=== PATIENT | female | born 1970 | race Caucasian/White ===

== ENCOUNTER → 2017-12-17 10:14 | Outpatient (CLI) | payer MEDICAID, SELFPAY ==
[2017-12-19 10:02] LABS: IgA 215 mg/dL (85-499); Interpretation SEE COMMENTS; Tissue Transglutaminase IgA <1.2 U/mL (<4.0)
== END ==
PROVIDERS: PCP Nurse Practitioner Family; Visit Provider Nurse Practitioner Family
DX: K58.9 Irritable bowel syndrome, unspecified (principal)
CPT/HCPCS: 36415; 82784; 83516

== ENCOUNTER 2018-04-20 00:48 | Outpatient (CLI) | payer MEDICAID, SELFPAY ==
--- NOTE | 2018-04-20 11:00 | DI.MAMMO_ITS ---
SYMPTOM/DIAGNOSIS: BREAST CANCER SCREENING. Z12.31 MAMMOGRAM: Mammograms were interpreted according to the usual protocol including computer analysis with CAD system, tomosynthesis and C view imaging. Comparison with prior examinations. Breast density B. No masses or microcalcifications are seen. There is nothing to suggest malignancy. IMPRESSION: Negative mammogram. Category 1-B. Routine screening is recommended. SA ASSESSMENT OF FINDINGS: Negative. Category 1. Patient will receive a letter notifying them of these results. BI-RADS category B. There are scattered areas of fibroglandular density.
== END 2018-04-20 01:08 ==
PROVIDERS: PCP Nurse Practitioner Family; Visit Provider Nurse Practitioner Family
CPT/HCPCS: 77063; 77067

== ENCOUNTER 2018-12-09 08:25 | Outpatient (CLI) | payer MEDICAID, SELFPAY ==
[2018-12-09 09:11] LABS: Absolute Basophil Count 0.01 k/cumm (0.0-0.2); Absolute Eosinophil Count 0.39 k/cumm (0.0-0.7); Absolute Monocyte Count 0.26 k/cumm (0.11-0.7); Absolute Neutrophil Count 2.28 k/cumm (1.2-6.7); Basophils % 0.3; Eosinophils % 9.9; HCT 42.2 % (36.0-46.0); HGB 14.2 g/dL (12.0-15.5); Lymphocytes % 25.4; Mean Corp. HGB Concentration 33.6 g/dL (32.0-36.0); Mean Corpuscular Hemoglobin 30.4 pg (27.0-33.0); Mean Corpuscular Volume 90.4 fL (80-95); Mean Platelet Volume 9.7 fL (8.0-11.0); Monocytes % 6.6; Neutrophils % 57.8; Platelet Count 396 x1000/uL (130-400); RBC 4.67 m/cumm (4.00-5.20); White Blood Cell Count 3.94 k/cumm (4.4-10.8)
[2018-12-09 10:10] LABS: ALT 34 U/L (12-78); Alkaline Phosphatase 105 U/L (46-116); Amylase 44 U/L (25-115); Anion Gap 9.6 mmol/L (3-11); BUN 14 mg/dL (7-18); Bilirubin, Total 0.2 mg/dL (0.2-1.0); CO2 24.4 mmol/L (21.0-32.0); CREATININE 0.64 mg/dL (0.55-1.02); Calcium 8.9 mg/dL (8.5-10.1); Chloride 105 mmol/L (98-107); FREE T4 0.96 ng/dL (0.76-1.46); Glucose 131 mg/dL (70-100); Lipase 184 U/L (73-393); Potassium 4.5 mmol/L (3.5-5.1); Sodium 139 mmol/L (136-145); TSH 2.52 uIU/mL (0.36-3.74); Total Protein 7.2 g/dL (6.4-8.2)
[2018-12-09 10:32] LABS: Cholesterol 299 mg/dL (50-200); HDL Cholesterol 37 mg/dL (40-60); Triglyceride 593 mg/dL (30-150)
[2018-12-09 10:50] LABS: AST 82 U/L (15-37)
[2018-12-09 10:52] LABS: LDL CHOLESTEROL 144 mg/dL (<100)
[2018-12-09 20:12] LABS: Hemoglobin A1C 6.4 % (4.5-6.2)
[2018-12-10 11:18] LABS: Thyroglobulin Antibody 84 U/mL (<61); Thyroperoxidase Antibody 683 U/mL (<61)
== END 2018-12-09 08:45 ==
PROVIDERS: PCP Nurse Practitioner Family; Visit Provider Nurse Practitioner Family
DX: E03.9 Hypothyroidism, unspecified (principal); G89.29 Other chronic pain; R10.84 Generalized abdominal pain; R19.7 Diarrhea, unspecified; K52.9 Noninfective gastroenteritis and colitis, unspecified; R73.03 Prediabetes
CPT/HCPCS: 80053; 80061; 83690; 83721; 86376; 87329; 87505; 82150; 83036; 83630; 84439; 84443; 85025

== ENCOUNTER 2019-03-29 11:37 | Outpatient (CLI) | payer OTHER, SELFPAY ==
[2019-03-29 13:14] LABS: Hemoglobin A1C 6.5 % (4.5-6.2)
[2019-03-29 13:41] LABS: ALT 37 U/L (14-59); AST 21 U/L (15-37); Albumin 4.3 g/dL (3.4-5.0); Alkaline Phosphatase 80 U/L (46-116); Anion Gap 7.8 mmol/L (3-11); BUN 14 mg/dL (7-18); Bilirubin, Total 0.5 mg/dL (0.2-1.0); CO2 28.2 mmol/L (21.0-32.0); CREATININE 0.74 mg/dL (0.55-1.02); Calcium 9.5 mg/dL (8.5-10.1); Calculated LDL 208 mg/dL; Chloride 104 mmol/L (98-107); Cholesterol 271 mg/dL (50-200); Glucose 90 mg/dL (70-100); HDL Cholesterol 44 mg/dL (40-60); Potassium 4.3 mmol/L (3.5-5.1); Sodium 140 mmol/L (136-145); Total Protein 7.5 g/dL (6.4-8.2); Triglyceride 96 mg/dL (30-150)
== END 2019-03-29 11:57 ==
PROVIDERS: PCP Nurse Practitioner Family; Visit Provider Nurse Practitioner Family
DX: R73.03 Prediabetes (principal)
CPT/HCPCS: 36415; 80053; 80061; 83036

== ENCOUNTER 2020-03-01 02:20 | Outpatient (CLI) | payer MEDICAID, SELFPAY ==
[2020-03-01 08:20] LABS: Hemoglobin A1C 5.8 % (<5.7)
[2020-03-01 09:24] LABS: Anion Gap 8.6 mmol/L (3-11); BUN 15 mg/dL (7-18); CO2 28.4 mmol/L (21.0-32.0); CREATININE 0.82 mg/dL (0.55-1.02); Calcium 9.2 mg/dL (8.5-10.1); Calculated LDL 196 mg/dL (<100); Chloride 105 mmol/L (98-107); Cholesterol 273 mg/dL (<200); Glucose 98 mg/dL (74-106); HDL Cholesterol 52 mg/dL (40-60); Potassium 4.5 mmol/L (3.5-5.1); Sodium 142 mmol/L (136-145); TSH 2.55 uIU/mL (0.36-3.74); Triglyceride 129 mg/dL (<150)
[2020-03-01 09:50] LABS: FREE T4 1.13 ng/dL (0.76-1.46)
== END 2020-03-01 02:40 ==
PROVIDERS: PCP Nurse Practitioner Family; Visit Provider Nurse Practitioner Family
DX: E11.9 Type 2 diabetes mellitus without complications (principal); E03.9 Hypothyroidism, unspecified
CPT/HCPCS: 36415; 80048; 80061; 83036; 84439; 84443

== ENCOUNTER 2020-08-30 09:21 | Outpatient (CLI) | payer MEDICAID, SELFPAY ==
--- NOTE | 2020-08-30 15:00 | DI.RAD_ITS ---
EXAM: XR ABDOMEN FLAT UPRIGHT CLINICAL HISTORY: abdominal pain, constipation, R14.0, K59.00, abd bloating. TECHNIQUE: 2D digital imaging was performed. COMPARISON: No exams were available for comparison FINDINGS: Supine and upright views of the abdomen reveal a nonspecific bowel gas pattern with no evidence of francesco wel obstruction. No free air. No abnormal calcification of the kidneys nor along the course of the ureters. Scoliosis noted in the lumbar spine convex left. Regional bones otherwise appear unremarka ble. IMPRESSION: Nonspecific bowel gas pattern. No bowel obstruction. No free air. DATA REPOSITORY: RADIATION DOSE DELIVERED:
== END 2020-08-30 09:41 ==
PROVIDERS: PCP Nurse Practitioner Family; Visit Provider Physician Assistant
DX: K59.00 Constipation, unspecified (principal); R14.0 Abdominal distension (gaseous)
CPT/HCPCS: 74019

== ENCOUNTER 2020-10-30 02:51 | Outpatient (CLI) | payer MEDICAID, SELFPAY ==
[2020-10-31 13:15] LABS: Lyme Ab w Rflx to Lyme Confirm Negative (Negative)
[2020-11-01 00:59] LABS: Anaplasma phagocytophilum Negative (Negative); B. miyamotoi PCR Negative (Negative); Babesia divergens/MO-1 Negative (Negative); Babesia duncani Negative (Negative); Babesia microti Negative (Negative); Ehrlichia chaffeensis Negative (Negative); Ehrlichia ewingii/canis Negative (Negative); Ehrlichia muris eauclairensis Negative (Negative)
== END 2020-10-30 02:52 | disposition home or self-care (01) ==
LOC: LBO 02:51
PROVIDERS: PCP Nurse Practitioner Family; Visit Provider Nurse Practitioner Family
DX: M43.6 Torticollis (principal)
CPT/HCPCS: 36415; 87798; 86618

== ENCOUNTER 2021-09-24 01:36 | Outpatient (CLI) | payer MEDICAID, SELFPAY ==
[2021-09-24 15:50] LABS: FREE T4 1.01 ng/dL (0.76-1.46); TSH 1.95 uIU/mL (0.36-3.74)
== END 2021-09-24 01:37 | disposition home or self-care (01) ==
LOC: LBO 01:36
PROVIDERS: PCP Nurse Practitioner Family; Visit Provider Nurse Practitioner Family
DX: E03.9 Hypothyroidism, unspecified (principal); E78.5 Hyperlipidemia, unspecified; R73.03 Prediabetes
CPT/HCPCS: 84439; 84443

== ENCOUNTER → 2023-01-27 00:51 | Outpatient (CLI) | payer MEDICAID, SELFPAY ==
--- NOTE | 2023-01-27 08:00 | DI.US_ITS ---
Exam(s) US PELVIS TRANSVAGINAL EXAM: US PELVIS TRANSVAGINAL CLINICAL HISTORY: evaluate ovaries due to hormone changes,menopausal symptoms,n95.1 TECHNIQUE: Transabdominal and transvaginal imaging was performed using standard protocol. COMPARISON: CT ABD PELVIS WITH CONTRAST from 12/02/2017 FINDINGS: UTERUS: Anteverted, deviated toward the right. 5.4 x 2.8 x 3.1 cm Endometrium: 2 mm Myometrium: Unremarkable. Cervix: Minimal amount of fluid OVARIES: Patient states prior history of oophorectomy but cannot remember which ovary was removed. Right: Not identified Left: Not identified CUL-DE-SAC: Free fluid: None. IMPRESSION: 1. Normal-appearing uterus with endometrial stripe within normal limits. 2. Neither ovary identified. DATA REPOSITORY:
== END ==
PROVIDERS: PCP Nurse Practitioner Family; Visit Provider Obstetrics & Gynecology
DX: N95.1 Menopausal and female climacteric states (principal)
CPT/HCPCS: 76830; 76856

== ENCOUNTER 2023-02-03 04:23 | Outpatient (CLI) | payer MEDICAID, SELFPAY ==
[2023-02-03 14:27] LABS: Hemoglobin A1C 6.3 % (<5.7)
[2023-02-03 15:36] LABS: ALT 30 U/L (14-59); AST 22 U/L (15-37); Alkaline Phosphatase 83 U/L (46-116); Anion Gap 10.7 mmol/L (3-11); BUN 12 mg/dL (7-18); Bilirubin, Total 0.8 mg/dL (0.2-1.0); CO2 25.3 mmol/L (21.0-32.0); CREATININE 0.7 mg/dL (0.55-1.02); Calcium 9.9 mg/dL (8.5-10.1); Chloride 103 mmol/L (98-107); Estimated GFR 102.71 (mL/min/1.73m2); Glucose 96 mg/dL (74-106); Potassium 3.6 mmol/L (3.5-5.1); Sodium 139 mmol/L (136-145); Total Protein 7.5 g/dL (6.4-8.2)
[2023-02-03 16:42] LABS: Cholesterol 316 mg/dL (<200); HDL Cholesterol 48 mg/dL (40-60); LDL CHOLESTEROL 203 mg/dL (<100); Triglyceride 251 mg/dL (<150)
[2023-02-03 22:39] LABS: Estradiol <12 pg/mL (See Note)
[2023-02-03 23:13] LABS: FSH 69.8 mIU/mL (See Note)
[2023-02-05 23:49] LABS: 17-Hydroxyprogesterone <40 ng/dL
[2023-02-09 10:25] LABS: Testosterone, Free 0.26 ng/dL (<0.13-0.92); Testosterone, Total 11 ng/dL (8-60)
== END 2023-02-03 04:24 | disposition home or self-care (01) ==
LOC: LBO 04:23
PROVIDERS: PCP Nurse Practitioner Family; Visit Provider Obstetrics & Gynecology
DX: E28.319 Asymptomatic premature menopause (principal); L68.0 Hirsutism; L68.9 Hypertrichosis, unspecified; N92.0 Excessive and frequent menstruation with regular cycle; E78.5 Hyperlipidemia, unspecified; R73.03 Prediabetes
CPT/HCPCS: 36415; 80053; 83498; 83721; 84402; 84403; 82465; 82670; 83001; 83036; 83718; 84443; 84478

== ENCOUNTER → 2023-04-21 02:45 | Outpatient (CLI) | payer MEDICAID, SELFPAY ==
[2023-04-21] MEDS: Omnipaque 350 MG/ML 100 ML BTL IJ (15:03)
[2023-04-21] MEDS: Normal Saline - Diluent 50 ML VIAL IJ (15:04)
--- NOTE | 2023-04-21 15:10 | DI.CT_ITS ---
Exam(s) CT ABDOMEN CTA EXAM: CT ABDOMEN CTA CLINICAL HISTORY: chronic LUQ pain,? mals,r10.12. TECHNIQUE: Imaging Protocol: Axial computed tomography images with coronal and sagittal reformatted images were created and reviewed CONTRAST MATERIAL: Intravenous: Omnipaque 350 Contrast volume:100 ml Oral: None COMPARISON: CT ABD PELVIS WITH CONTRAST from 12/02/2017 FINDINGS: Visualized lung bases: Mild atelectasis in the lingular segment of the left lung. There are no pleur al effusions. There is a small asymmetric appearing hiatal hernia. Endoscopy recommended. ABDOMEN: AORTA: There is no evidence of abdominal aortic aneurysm nor dissection.Maximum diameter of the abdominal ao rta is 1.6 cm (proximally), and the abdominal aorta exhibits normal distal tapering. Aortic bifurcat ion and common iliac arteries appear unremarkable.Distally the inferior mesenteric artery is patent. There is no stenosis nor fibromuscular dysplasia of the renal arteries evident. Proximally the supe rior mesenteric artery appears unremarkable. No significant stenosis and no evidence of filling defe cts therein. With respect of the celiac artery, there is no significant narrowing at its origin. No aneurysm nor dissection. No obvious extrinsic compression. There is no ascites. LIVER: There are no focal hepatic lesions nor dilatation of intrahepatic ducts. GALLBLADDER/BILIARY: No obvious gallbladder pathology. CBD is not dilated. PANCREAS: No evidence of pancreatic mass nor dilatation of the pancreatic duct. SPLEEN: Spleen is not enlarged. There are no intrasplenic lesions. Splenic and portal veins are jacobs nt. ADRENALS: There are no significant adrenal masses. KIDNEYS: Normal size bilaterally. No cysts evident. No calculi nor hydronephrosis. No solid renal ma sses. ABDOMINAL AORTA: Unremarkable, as above. LYMPH NODES: There is no retroperitoneal nor para-aortic adenopathy. No obvious mesenteric masses. ABDOMINAL WALL: No evidence of significant anterior abdominal wall hernia. GI: There is no evidence of bowel obstruction, free air, nor abscess. IMPRESSION: 1. Unremarkable CT angiography of the abdominal aorta. No evidence of abdominal aortic aneurysm nor lack of normal tapering and the common iliac arteries appear unremarkable. 2. No evidence of stenosis nor extrinsic compression of the origin of the celiac artery, as per reque st. 3. Superior mesenteric artery also appears unremarkable. Inferior mesenteric artery is patent. 4. Both renal arteries appear unremarkable. RADIATION DOSE DELIVERED: Total DLP DATA REPOSITORY: All CT scans at this facility are submitted to the National Radiology Data Registry (NRDR) Dose Index Registry (DIR) with the [employer] ([employer]). RADIATION OPTIMIZATION: All CT scans at this facility use at least one of these dose optimization te chniques: automated exposure control; mA and/or kV adjustment per patient size (includes targeted exa ms where dose is matched to clinical indication); or iterative reconstruction.
== END ==
PROVIDERS: PCP Nurse Practitioner Family; Visit Provider Nurse Practitioner Family
DX: G89.29 Other chronic pain (principal); R10.12 Left upper quadrant pain
CPT/HCPCS: 74175; J3490

== ENCOUNTER 2023-07-07 18:02 | Outpatient (REF) | payer MEDICAID, SELFPAY ==
--- NOTE | 2023-07-07 12:00 | PAPFT_PTH ---
PATIENT: Ana Haile LOC: [facility] U#:[id number] AGE/SX: 52/F ROOM: RE07/07/[address]: TED Kahn : 1970 BED: DIS: 07/07/2023 SPEC #: [id number] RECD: 07/08/23 12:53 STATUS: AUDIE REEulalia #: [id number] CECY: 07/07/23 12:[address]: Gladis Moura DEPT: [facility] Cytology RECD BY: Hayley García Tissues: 1 - CX/ENDOCX FOR PAP SMEARS Procedures: PAP THIN PREP/UVM Screening HPV DNA PROBE Comments: [id number]
== END 2023-07-07 18:03 | disposition home or self-care (01) ==
LOC: LBN 18:02
PROVIDERS: PCP Nurse Practitioner Family; Referring Provider Nurse Practitioner Family; Visit Provider Nurse Practitioner Family
DX: Z12.4 Encounter for screening for malignant neoplasm of cervix (principal); Z01.419 Encounter for gynecological examination (general) (routine) without abnormal findings
CPT/HCPCS: 88142; 87624

== ENCOUNTER → 2023-09-29 01:34 | Outpatient (CLI) | payer MEDICAID, SELFPAY ==
--- NOTE | 2023-09-29 09:00 | DI.MAMMO_ITS ---
Exam(s) MAMMO SCREENING EXAM: MAMMO SCREENING CLINICAL HISTORY: screening,z12.39 TECHNIQUE: Bilateral full field digital CC and MLO mammographic images were obtained with 3D tomosyn thesis and utilizing computer aided detection (CAD). COMPARISON: Available for comparison. FINDINGS: Masses/Architectural Distortion: None seen. Microcalcifications: No suspicious pleomorphic-type are seen. Skin Thickening/Nipple Retraction: None. IMPRESSION: 1. No significant interval change with no specific features of malignancy noted. 2. Unless there is more urgent need, screening mammography is recommended, as per [employer] guidelines. BI-RADS Category 1 - Negative Breast Density - Category B - Scattered areas of fibroglandular density Breast density category C or D implies that the patient has dense breast tissue. Dense breast tissue is very common and is not abnormal but dense breast tissue can make it harder to find cancer on a ma mmogram. Also, dense breast tissue may increase their breast cancer risk. This information about the result of the mammogram report was provided to the patient to raise their awareness. Use this report when you speak with the patient about their risks for breast cancer, which includes their family hist ory. At that time, you may recommend for more screening tests (Ultrasound or MRI) as they might be us eful based on their risk. A negative radiographic report should not delay biopsy if a dominant or clinically suspicious mass is present. Up to ten percent of cancers are not identified on mammography. A negative report may reinforce clinical impression. Adenosis and dense breasts may obscure an underlying neoplasm. False positive reports average 6 to 10%. Patient will receive a letter notifying them of these results.
== END ==
PROVIDERS: PCP Nurse Practitioner Family; Visit Provider Nurse Practitioner Family
DX: Z12.31 Encounter for screening mammogram for malignant neoplasm of breast (principal)
CPT/HCPCS: 77063; 77067

== ENCOUNTER 2024-01-14 15:02 | Outpatient (REF) | payer MEDICAID, SELFPAY ==
[2024-01-14 21:25] LABS: Abs Immature Grans 0.02 10^3/uL (0.0-0.06); Absolute Basophil Count 0.03 10^3/uL (0.0-0.2); Absolute Eosinophil Count 0.11 10^3/uL (0.0-0.7); Absolute Lymphocyte Count 1.34 10^3/uL (1.2-3.4); Absolute Monocyte Count 0.36 10^3/uL (0.1-0.8); Absolute Neutrophil Count 4.51 10^3/uL (1.2-6.7); Basophils % 0.5 %; Eosinophils % 1.7 %; HCT 41.4 % (36.0-46.0); HGB 13.7 g/dL (11.2-15.7); Immature Grans % 0.3 %; MCH 30.6 pg (27.0-33.0); MCHC 33.1 % (32.0-36.0); MCV 93 fL (80-95); Monocytes % 5.7 %; Neutrophils % 70.8 %; Platelet Count 396 10^3/uL (130-400); RBC 4.47 10^6/uL (3.93-5.22); RDW 12.8 % (11.7-14.6); RDW-SD 43.7 fL; WBC 6.37 10^3/uL (4.4-10.8)
[2024-01-14 21:29] LABS: Bilirubin Negative (Negative); Blood Trace-lysed (Negative); Clarity Clear (Clear); Glucose Negative (Negative); Ketones 15 mg/dL (Negative); Leukocyte Esterase Trace (Negative); Nitrite Negative (Negative); Specific Gravity >= 1.030 (1.005-1.025); Urobilinogen 0.2 mg/dL (Up to 0.2)
[2024-01-14 21:38] LABS: Bacteria Negative HPF (Negative); C & S Indicated? No; Casts Negative LPF (Negative); Crystals Negative HPF (Negative); Epithelial Cells Rare HPF (Negative); Mucus Negative (Negative); RBC Negative HPF (0-2); WBC 0-2 HPF (0-5)
[2024-01-14 21:53] LABS: ALT 38 U/L (14-59); AST 22 U/L (15-37); Alkaline Phosphatase 106 U/L (46-116); Anion Gap 8.9 mmol/L (3-11); BUN 14 mg/dL (7-18); Bilirubin, Total 0.37 mg/dL (0.2-1.0); CO2 26.1 mmol/L (21.0-32.0); CREATININE 0.7 mg/dL (0.55-1.02); Calcium 9.3 mg/dL (8.5-10.1); Calculated LDL 178 mg/dL (<100); Chloride 101 mmol/L (98-107); Cholesterol 304 mg/dL (<200); Estimated GFR 102.07 (mL/min/1.73m2); Glucose 102 mg/dL (74-106); HDL Cholesterol 49 mg/dL (40-60); Potassium 4.5 mmol/L (3.5-5.1); Sodium 136 mmol/L (136-145); TSH (W/Ref FT4) 2.59 uIU/mL (0.36-3.74); Total Protein 7.3 g/dL (6.4-8.2); Triglyceride 388 mg/dL (<150)
[2024-01-14 22:12] LABS: Hemoglobin A1C 6.3 % (<5.7)
[2024-01-15 23:47] LABS: Hepatitis C Ab w Rflx HCV PCR Negative (Negative)
[2024-01-16 00:10] LABS: HBs Antibody, Quant 57.9 mIU/mL (See Note); Hep B Surface Ab Positive (See Note); Hepatitis B Core Antibody Negative (Negative); Hepatitis B Surface Antigen Negative (Negative)
[2024-01-16 00:25] LABS: HIV-1/2 Ag & Ab Screen Negative (Negative)
== END 2024-01-14 15:03 | disposition home or self-care (01) ==
LOC: LBN 15:02
PROVIDERS: PCP Nurse Practitioner Family; Visit Provider Nurse Practitioner Family
DX: R30.0 Dysuria (principal); Z11.59 Encounter for screening for other viral diseases; R73.03 Prediabetes; E03.9 Hypothyroidism, unspecified; R10.9 Unspecified abdominal pain; Z11.4 Encounter for screening for human immunodeficiency virus [HIV]
CPT/HCPCS: 80053; 80061; 86704; 86706; 86803; 87340; 87389; 81003; 81015; 83036; 84443; 85025

== ENCOUNTER 2025-05-03 13:49 | Outpatient (CLI) | payer MEDICAID, SELFPAY ==
[2025-05-03 15:58] LABS: Hemoglobin A1C 5.7 % (<5.7)
[2025-05-03 16:14] LABS: TSH (W/Ref FT4) 2.67 uIU/mL (0.55-4.78)
[2025-05-03 16:22] LABS: Anion Gap 10.3 mmol/L (3-11); BUN 19 mg/dL (9-23); CO2 26.7 mmol/L (20.0-31.0); Calcium 9.9 mg/dL (8.3-10.6); Chloride 105 mmol/L (98-107); Cholesterol 280 mg/dL (<200); Glucose 91 mg/dL (74-106); HDL Cholesterol 63 mg/dL (>40); Potassium 4.4 mmol/L (3.5-5.1); Sodium 142 mmol/L (136-145)
== END 2025-05-03 13:50 | disposition home or self-care (01) ==
LOC: LBO 13:49
PROVIDERS: PCP Nurse Practitioner Family; Visit Provider Nurse Practitioner Family
DX: R73.03 Prediabetes (principal); E03.9 Hypothyroidism, unspecified; E78.5 Hyperlipidemia, unspecified
CPT/HCPCS: 36415; 80048; 80061; 83036; 84443